=== PATIENT | female | born 1970 | race Caucasian/White ===

== ENCOUNTER 2018-02-19 13:38 | Inpatient (IN) | payer OTHER ==
[~2018-02-19] VITALS: Ht 152.4 cm; Wt 64.9 kg
[2018-02-19] MEDS ORDERED: TOPROL XL100 M1 PO (15:41)
[2018-02-19] MEDS ORDERED: CATAPRES0.2 MG PO (15:42)
[2018-02-19] MEDS ORDERED: TAMOXIFEN CITRA20 MG PO (15:42)
[2018-02-19] MEDS ORDERED: HYZAAR 100-251 EACH PO (15:42)
[2018-02-19] MEDS ORDERED: TOPAMAX25 M1 PO (15:43)
[2018-03-01] MEDS ORDERED: OXYC1TAB9 PO (10:52)
[2018-03-01] MEDS ORDERED: CATAPRES0.2 MG PO (10:52)
[2018-03-01] MEDS ORDERED: DILTIAZEM HCL120 MG PO (10:52)
[2018-03-01] MEDS ORDERED: TOPROL XL100 M1 PO (10:52)
[2018-03-01] MEDS ORDERED: LOSARTAN-HCTZ1 EAC2 PO (10:52)
== END 2018-03-01 12:07 | disposition home or self-care (01) | DRG 330 ==
LOC: SURH 02-23 14:15 → O/R 02-26 10:25 → SURG 02-26 10:25 → SURH 02-26 14:15 → O/R 02-26 18:15 → SURG 02-27 08:44
PROVIDERS: Surgery
PROC: 0DQ84ZZ Repair Small Intestine, Percutaneous Endoscopic Approach (ICD-10-PCS; 2018-02-26)
PROC: 0DNW4ZZ Release Peritoneum, Percutaneous Endoscopic Approach (ICD-10-PCS; 2018-02-26)
PROC: 0DN84ZZ Release Small Intestine, Percutaneous Endoscopic Approach (ICD-10-PCS; 2018-02-26)
PROC: 0DBW4ZZ Excision of Peritoneum, Percutaneous Endoscopic Approach (ICD-10-PCS; 2018-02-26)
PROC: 0DTJ4ZZ Resection of Appendix, Percutaneous Endoscopic Approach (ICD-10-PCS; principal; 2018-02-26 05:00)
PROC: 02HV33Z Insertion of Infusion Device into Superior Vena Cava, Percutaneous Approach (ICD-10-PCS; 2018-02-27)
PROC: B246ZZZ Ultrasonography of Right and Left Heart (ICD-10-PCS; 2018-02-28)
DX: D37.3 Neoplasm of uncertain behavior of appendix (principal); K91.71 Accidental puncture and laceration of a digestive system organ or structure during a digestive system procedure; D68.0 Von Willebrand disease; M50.021 Cervical disc disorder at C4-C5 level with myelopathy; K66.8 Other specified disorders of peritoneum; K66.0 Peritoneal adhesions (postprocedural) (postinfection); I10 Essential (primary) hypertension; R73.01 Impaired fasting glucose; K91.0 Vomiting following gastrointestinal surgery; N60.12 Diffuse cystic mastopathy of left breast; N60.11 Diffuse cystic mastopathy of right breast

== ENCOUNTER 2018-03-10 14:13 | Emergency (ER) | payer OTHER ==
[~2018-03-10] VITALS: Ht 152.4 cm; Wt 62.6 kg
[~2018-03-10 14:13] MED LIST: CATAPRES0.2 MG PO; DILTIAZEM HCL120 MG PO; HYZAAR 100-251 EACH PO; LOSARTAN-HCTZ1 EAC2 PO; OXYC1TAB9 PO; TAMOXIFEN CITRA20 MG PO; TOPAMAX25 M1 PO; TOPROL XL100 M1 PO
[2018-03-10] MEDS ORDERED: CATAPRES0.1 MG (14:30)
[2018-03-10] MEDS ORDERED: CARDIZEM30 MG (14:30)
== END 2018-03-10 22:44 | disposition home or self-care (01) ==
LOC: ER 14:13
DX: R14.0 Abdominal distension (gaseous) (principal); R11.2 Nausea with vomiting, unspecified; G89.18 Other acute postprocedural pain

== ENCOUNTER 2019-06-14 12:52 | Emergency (ER) | payer OTHER ==
[~2019-06-14] VITALS: Ht 152.4 cm; Wt 62.6 kg
[~2019-06-14 12:52] MED LIST changes: +CARDIZEM30 MG; +CATAPRES0.1 MG
[2019-06-14] MEDS ORDERED: NORVASC5 MG PO (13:17)
== END 2019-06-14 19:38 | disposition home or self-care (01) ==
LOC: ER 12:52
DX: M25.561 Pain in right knee (principal)

== ENCOUNTER 2019-09-08 07:30 | Day surgery (SDC) | payer OTHER ==
[~2019-09-08 07:30] MED LIST changes: +ELIQUIS5 M1; +FLECAINIDE ACET50 MG; +HYZAAR 100-12.1 EACH; +NORVASC10 MG; +NORVASC5 MG PO
[2019-09-08] MEDS ORDERED: PERCOCET 5-3251 EACH PO (13:16)
== END 2019-09-08 15:30 | disposition home or self-care (01) ==
LOC: CIR.AMB 07:30
DX: M23.321 Other meniscus derangements, posterior horn of medial meniscus, right knee (principal); M23.351 Other meniscus derangements, posterior horn of lateral meniscus, right knee; M65.861 Other synovitis and tenosynovitis, right lower leg; M94.261 Chondromalacia, right knee